=== PATIENT | female | born 1980 | race Two or more races ===

== ENCOUNTER 2022-03-12 10:47 | Outpatient (CLI) | payer BC | END 2022-03-12 10:48 | disposition home or self-care (01) | LOC: CSHMAMMO 10:47 | PROVIDERS: ATTEND Family Medicine | DX: Z12.31 Encounter for screening mammogram for malignant neoplasm of breast (principal) | CPT/HCPCS: 77063; 77067 ==

== ENCOUNTER 2023-03-24 09:48 | Outpatient (CLI) | payer BC | END 2023-03-24 09:49 | disposition home or self-care (01) | LOC: CSHMAMMO 09:48 | PROVIDERS: ATTEND Family Medicine | DX: Z12.31 Encounter for screening mammogram for malignant neoplasm of breast (principal) | CPT/HCPCS: 77063; 77067 ==

== ENCOUNTER 2023-07-17 13:53 | Outpatient (CLI) | payer BC | END 2023-07-17 13:54 | disposition home or self-care (01) | LOC: CSHULT 13:53 | PROVIDERS: ATTEND Family Medicine | DX: R10.2 Pelvic and perineal pain (principal); N83.9 Noninflammatory disorder of ovary, fallopian tube and broad ligament, unspecified | CPT/HCPCS: 76856 ==

== ENCOUNTER 2023-12-24 13:53 | Outpatient (CLI) | payer BC | END 2023-12-24 13:54 | disposition home or self-care (01) | LOC: CSHULT 13:53 | PROVIDERS: ATTEND Family Medicine | DX: N83.202 Unspecified ovarian cyst, left side (principal) | CPT/HCPCS: 76856 ==